=== PATIENT | male | born 1960 | race Caucasian/White ===

== ENCOUNTER 2019-03-08 08:30 | Day surgery (SDC) | payer BC ==
[~2019-03-08] VITALS: Ht 175.3 cm; Wt 99.8 kg
== END 2019-03-08 10:40 | disposition home or self-care (01) ==
LOC: OPS 08:30 → DS 08:30 → OPS 09:30 → DS 09:30 → OPS 10:40
PROC: 0DJD8ZZ Inspection of Lower Intestinal Tract, Via Natural or Artificial Opening Endoscopic (ICD-10-PCS; principal; 2019-03-08)
DX: Z12.11 Encounter for screening for malignant neoplasm of colon (principal); K57.30 Diverticulosis of large intestine without perforation or abscess without bleeding; I10 Essential (primary) hypertension; G47.30 Sleep apnea, unspecified; Z79.899 Other long term (current) drug therapy; Z98.890 Other specified postprocedural states
CPT/HCPCS: 99153; G0500; J2250; J3010; J7121

== ENCOUNTER 2020-10-24 06:09 | Emergency (ER) | payer BC ==
[~2020-10-24] VITALS: Ht 175.3 cm; Wt 95.2 kg
[~2020-10-24 06:09] MED LIST: COZAAR50 MG PO; LIPITOR10 MG PO; METOPROLOL SUCC25 MG PO; MIRAPEX0.25 MG PO; NORVASC10 MG PO; PROTONIX20 MG PO; RANITIDINE HCL150 M1 PO; TRAZODONE HCL50 MG NG
[2020-10-24] MEDS ORDERED: LOSARTAN POTAS100 MG PO (06:23)
[2020-10-24] MEDS ORDERED: METOPROLOL SUC100 MG PO (06:23)
== END 2020-10-24 08:03 | disposition home or self-care (01) ==
LOC: ED 06:09
DX: B34.9 Viral infection, unspecified (principal); Z20.822 Contact with and (suspected) exposure to COVID-19; I10 Essential (primary) hypertension; Z86.73 Personal history of transient ischemic attack (TIA), and cerebral infarction without residual deficits
CPT/HCPCS: 80053; 85025; 99283; C9803; J7040; U0003

== ENCOUNTER 2022-05-10 10:56 | Emergency (ER) | payer BC ==
[~2022-05-10] VITALS: Ht 175.3 cm; Wt 104.3 kg
[~2022-05-10 10:56] MED LIST changes: +LOSARTAN POTAS100 MG PO; +METOPROLOL SUC100 MG PO
[2022-05-10] MEDS ORDERED: HYDROCHLOROTHIA25 MG PO (11:24)
[2022-05-10] MEDS ORDERED: PANTOPRAZOLE SO20 MG PO (11:24)
[2022-05-10] MEDS ORDERED: RIBOFLAVIN400 MG PO (11:25)
== END 2022-05-10 12:22 | disposition home or self-care (01) ==
LOC: ED 10:56
DX: S93.401A Sprain of unspecified ligament of right ankle, initial encounter (principal); X50.1XXA Overexertion from prolonged static or awkward postures, initial encounter; I10 Essential (primary) hypertension; Z79.899 Other long term (current) drug therapy
CPT/HCPCS: 73610; 99283-25